=== PATIENT | female | born 1955 | race Caucasian/White ===

== ENCOUNTER 2017-08-04 09:43 | Inpatient (IN) ==
[2017-08-04 12:17] LABS: Activated Partial Thrombo Time 147.3 Seconds (26.0-36.0)
[2017-08-04 12:24] LABS: Heparin anti-factor XA UFH 0.99 IU/mL (0.30-0.70)
[2017-08-04] MEDS ORDERED: *HR* Heparin 5,000 UNIT/ML VIAL IVP PRN ×2 (13:22)
[2017-08-04] MEDS ORDERED: Ondansetron 4 MG/2 ML VIAL IVP PRN (13:25)
[2017-08-04] MEDS ORDERED: Acetaminophen 325 MG TABLET PO PRN (13:25)
[2017-08-04] MEDS ORDERED: Naloxone 0.4 MG/ML INJ IVP PRN (13:25)
[2017-08-04] MEDS ORDERED: *HR* Morphine 2 MG/ML SYRINGE IVP PRN (13:25)
[2017-08-04] MEDS ORDERED: *HR* HYDROcodone/Acet 5/325 mg TABLET PO PRN (13:25)
[2017-08-04] MEDS ORDERED: Heparin 25,000 UNIT/500 ML D5W 25,000 UNIT/500 ML BAG IVC SCH (13:30)
[2017-08-04] MEDS ORDERED: Nitroglycerin 0.4 MG TAB.SUBL SL PRN (13:30)
[2017-08-04 14:18] LABS: Hematocrit 42.8 % (35.3-44.9); Hemoglobin 13.7 g/dL (11.5-15.4); Mean Corpuscular Hemoglobin 27.6 pg (28.0-33.3); Mean Corpuscular Volume 86.1 fL (83.0-100.0); Mean Platelet Volume 10.8 fL (9.4-12.4); Platelet Count 190 K/mcL (140-400); Red Blood Count 4.97 M/mcL (3.82-4.97); Red Cell Distribution Width 14.2 % (11.5-14.5)
[2017-08-04 14:25] LABS: INR 1.1
[2017-08-04 14:38] LABS: Activated Partial Thrombo Time 30.2 Seconds (26.0-36.0)
--- NOTE | 2017-08-04 14:58 | Cardiology Consult Note ---
Date of Encounter: 08/04/17 Time of Encounter: 14:56 Assessment and Plan (1) CAD (coronary artery disease) Current Visit: No Status: Acute Qualifiers: Coronary Disease-Associated Artery/Lesion type: robinson artery [place] vs. transplanted heart: robinson heart Associated angina: without angina Qualified Code(s): I25.10 - Atherosclerotic heart disease of robinson coronary artery without angina pectoris (2) Non-ST elevation myocardial infarction (NSTEMI) Current Visit: No Status: Acute CAD, prior PCI to the LAD. Symptoms concerning for angina, mild troponin elevation, abnormal ECG. Findings consistent with a NSTEMI. Recommend serial troponin. Continue dual antiplatelet therapy, heparin drip, metoprolol, atorvastatin, and lisinopril therapy. Check limited TTE. The risks, benefits, and alternatives to cardiac catheterization were discussed. Patient and family voiced understanding, wish to proceed. Further recommendations to follow. Discussion w patient/family: The assessment and plan as outlined above was discussed with the patient and/or family members who expressed understanding and agreement. All questions were answered. Thank you for involving us in the care of your patient. Please call with any questions. History of Present Illness Consult date: 08/04/17 Requesting physician: Galina Thomson Consult reason: Chest discomfort Chief complaint: Chest discomfort History of present illness: Ms. Ying is a 61 year old female with a history of CAD, prior PCI to the proximal LAD 12/2016. Until recently, she has done well since PCI. She has been compliant with medical therapy. Over the last week, she has noticed intermittent chest discomfort. Initially, she noticed an upper left-sided chest discomfort with walking in the cold. This was associated with radiation down her left arm. This morning, she was walking to the bathroom to brush her hair, when the symptoms returned. She decided to seek medical attention. At an outside ER, testing obtained which demonstrated a mildly elevated troponin and anteroseptal ST and T-wave changes. Upon my evaluation in her room, she is currently chest pain-free. Recent CV testing: Stress echocardiogram 12/18/16: The exercise capacity was good, stress ECG is positive for ischemia with [address] depressions in the inferolateral leads, normal baseline LV systolic function, LVEF 55-60%, there is stress-induced hypokinesis of the mid anteroseptum, mid-apical anterior wall , apical inferior wall, and apex. [facility] [place] 12/24/16: Severe 1v CAD s/p successful PTCA/CARMENCITA to pLAD; otherwise non- obstructive CAD (15% pLCx, 15% pRCA). Past Med Surg Social Fam HX - Past Medical History Medical history: non-contributory, coronary artery disease, hypertension Psychiatric history: no psych history - Past Surgical History Surgical History: cholecystectomy - Social History Smoking Status: Never smoker Smokeless Tobacco Status: No Alcohol use: none Drug use: none Medications and Allergies Metoprolol Succinate 25 mg PO DAILY 12/24/16 [History] Nitroglycerin 0.4 mg SL Q5MIN 12/24/16 [History] Aspirin [Lo-Dose Aspirin EC] 81 mg PO DAILY #30 tablet. 12/25/16 [Rx] Atorvastatin [Lipitor] 80 mg PO HS #30 tablet 12/25/16 [Rx] Clopidogrel [Plavix] 75 mg PO DAILY #30 tablet 12/25/16 [Rx] Lisinopril [Zestril] 5 mg PO DAILY #30 tablet 12/25/16 [Rx] Ranitidine HCl 150 mg PO DAILY 08/04/17 [History] 3 Allergy/AdvReac Type Severity Reaction Status Date / Time clavulanic acid Allergy Nausea Verified 06/22/17 10:08 [From Augmentin] prochlorperazine Allergy Hallucinati Verified 06/22/17 10:08 [From Compazine] ng All Systems Review: A 10-system review of systems was performed and is negative for pertinent findings except as documented above in the HPI. - Cardiovascular Cardiovascular: as per HPI Physical Examination General: Conversant, No Apparent Distress HEENT: Atraumatic, Normocephaly, Mucus Membranes Moist Neck: No JVD, Normal carotid pulses Cardiac: Reg Rate and Rhythm, Normal S1 and S2, No Murmur Lungs: Normal Breath Sounds, No Wheeze, Rales, Rhonchi Neuro: Alert and responsive, No focal deficits noted Abdomen: Soft, Non-Tender Skin: No rashes noted on visualized skin Musculoskeletal: No Chest Wall Tenderness Extremities: No Clubbing, No Cyanosis, No Edema Results 08/04/17 14:00 Lab Results 08/04/17 08/04/17 08/04/17 11:28 14:00 14:00 WBC 5.2 Hgb 13.7 Hct 42.8 Plt Count 190 INR 1.1 APTT 147.3 H* D 30.2 D Troponin I 08/04/17 14:00 WBC Hgb Hct Plt Count INR APTT Troponin I 0.40 H* - Imaging and Cardiology Echo: report reviewed Cardiac cath: report reviewed - EKG Interpretation EKG results cardiology: personally reviewed Consult Discharge Plan - Plan Referrals: Lorenzo Hill MD [Primary Care Provider] -
--- NOTE | 2017-08-04 15:31 | Internal Med History&Physical ---
<Frank Dunbar - Last Filed: 08/04/17 15:53> Date of Encounter: 08/04/17 Time of Encounter: 12:30 Assessment and Plan (1) Non-ST elevation myocardial infarction (NSTEMI) Current visit: Yes Status: Acute Acute NSTEMI. Pt. reports left-sided chest pain this morning, 15 minutes in duration as sharp/stabbing pain w/radiation to left arm and accompanied by SOB and diaphoresis. Pt. which she took one nitroglycerin which resolved symptoms. Patient also reports history of previous heart catheterization in December 2016 with placement of stent 1. Initial troponin 0.32. Will trend x2. Cardiology consult ordered in ED w/Dr. Fernandez w/recommendation to continue heparin drip and limited EV echocardiogram. Pt. to be NPO for possible heart catheterization in a.m. continue aspirin therapy, metoprolol, atorvastatin, lisinopril. Hold patient's Plavix. Continuous cardiac telemetry. Supplemental O2 and SPO2 monitoring when necessary. Patient discussed with Dr. Mo who agrees w/plan of care. Patient is at high risk for cardiac event and further morbidity based on current symptoms, history of previous heart catheterization and stent placement, and risk factors. Inpatient. (2) HTN (hypertension) Current visit: Yes Status: Chronic Hx of chronic HTN. Monitor pt. and VS. Continue patient's lisinopril and metoprolol. Qualifiers: Hypertension type: essential hypertension Qualified Code(s): I10 - Essential (primary) hypertension (3) HLD (hyperlipidemia) Current visit: Yes Status: Chronic Hx of chronic HLD. Lipid panel in a.m. labs. Lipitor 80 mg now and continue HS tomorrow. Qualifiers: Hyperlipidemia type: pure hypercholesterolemia Qualified Code(s): E78.00 - Pure hypercholesterolemia, unspecified; E78.0 - Pure hypercholesterolemia (4) CAD (coronary artery disease) Current visit: Yes Status: Chronic Hx of CAD. Pt. reports she had previous heart cath in December 2016 w/stent placement x1. Continuous cardiac telemetry. Initial troponin today 0.32. Will trend x2. Cardiology consult ordered w/recommendation for EV limited echocardiogram. Continue patient's metoprolol, atorvastatin, lisinopril, and aspirin therapy. Qualifiers: Coronary Disease-Associated Artery/Lesion type: [place] artery [place] vs. transplanted heart: [place] heart Associated angina: without angina Qualified Code(s): I25.10 - Atherosclerotic heart disease of [place] coronary artery without angina pectoris (5) DVT prophylaxis Current visit: Yes Status: Acute Pt. placed in heparin drip for current elevated troponin and findings for NSTEMI. Monitor pt. for signs of bleeding. Internal Medicine - H&P: HPI Chief complaint: Chest pain Admitted From: Intrahospital Transfer Plans for Post Hospital Care: Home History of present illness: Ms. Ying is a 61 year old female with medical hx of coronary artery disease, hyperlipidemia, and hypertension presents from [facility] today are with chief complaint of chest pain that she states began this morning when she was getting ready for mosque and is located in her left breast that lasted approximately 15 minutes accompanied with diaphoresis and SOB. Patient describes the pain as sharp and stabbing with radiation to her left arm. Patient also reports previous heart catheter in December 2016 with placement of one stent. She reports she took one nitroglycerin at home which resolved symptoms. Patient denies recent illness, fever, chills, nausea, vomiting, changes in vision, headache, abdominal pain, diarrhea, constipation, dizziness, lightheadedness, pre-syncope , or syncope. Past Med Surg Social Fam HX - Past Medical History Source: patient, old records reviewed, obtained from family Medical history: coronary artery disease, hyperlipidemia, hypertension Psychiatric history: no psych history - Past Surgical History Surgical History: cholecystectomy - Social History Smoking Status: Never smoker Smokeless Tobacco Status: No Alcohol use: none Drug use: none Current living situation: Home, With Family Activity Level: Independent ambulation Recent Out of Country Travel Within the Last 8 Weeks: No Exposure or Possible Exposure to Illness During Travel: No - Family History Father Race: Family Member Ethnicity: Non- Living Status: Age at : 85 Cause of : CHF Hx Family Cardiac Disorders: Yes (DE, CHF) Hx Family Endocrine Disorder: Yes (DM) Mother Race: Family Member Ethnicity: Non- Living Status: Still Living Hx Family Respiratory Disorders: Yes (Pulmonary fibrosis) Sister Race: Family Member Ethnicity: Non- Living Status: Still Living Hx Family Respiratory Disorders: Yes (Pulmonary fibrosis) Internal Medicine - H&P: Meds Metoprolol Succinate 25 mg PO DAILY 12/24/16 [History] Nitroglycerin 0.4 mg SL Q5MIN 12/24/16 [History] Aspirin [Lo-Dose Aspirin EC] 81 mg PO DAILY #30 tablet. 12/25/16 [Rx] Atorvastatin [Lipitor] 80 mg PO HS #30 tablet 12/25/16 [Rx] Clopidogrel [Plavix] 75 mg PO DAILY #30 tablet 12/25/16 [Rx] Lisinopril [Zestril] 5 mg PO DAILY #30 tablet 12/25/16 [Rx] Ranitidine HCl 150 mg PO DAILY 08/04/17 [History] 3 Allergy/AdvReac Type Severity Reaction Status Date / Time clavulanic acid Allergy Nausea Verified 06/22/17 10:08 [From Augmentin] prochlorperazine Allergy Hallucinati Verified 06/22/17 10:08 [From Compazine] ng All Systems PM: A 10-system review of systems was performed and is negative for pertinent findings except as documented above in the HPI. - Constitutional Constitutional: no chills, no fever(s), no night sweats - EENT Eyes: no change in vision, no discharge, no pain, no photophobia Ears: no ear discharge, no ear pain, no tinnitus Nose, mouth and throat: no dysphagia, no nasal discharge, no neck pain, no sore throat - Breasts Breasts: as per HPI - Cardiovascular Cardiovascular ROS IM: as per HPI, chest pain, diaphoresis, dyspnea, dyspnea on exertion, no lightheadedness, no palpitations, no syncope - Respiratory Respiratory: as per HPI, dyspnea, dyspnea on exertion - Gastrointestinal Gastrointestinal: no abdominal pain, no diarrhea, no hematemesis, no hematochezia, no melena, no nausea, no vomiting - Genitourinary Genitourinary: no change in urinary stream, no dysuria, no flank pain, no hematuria Menstruation: as per HPI - Musculoskeletal Musculoskeletal ROS IM: no numbness, no tingling - Integumentary Integumentary IM: no rash, no unusual bruising - Neurological Neurological ROS: no confusion, no convulsions, no focal weakness, no numbness, no tingling, no tremor(s) - Psychiatric Psychiatric: as per HPI - Endocrine Endocrine IM: as per HPI - Hematologic/Lymphatic Hematologic/Lymphatic: no easy bruising - Allergic/Immunologic Allergic/Immunologic: as per HPI - Constitutional Vitals: Temp Pulse Resp BP Pulse Ox 97.4 F L 65 17 158/82 96 08/04/17 10:49 08/04/17 10:49 08/04/17 10:49 08/04/17 10:49 08/04/17 10:49 General appearance: Present: cooperative, A&O X 3, pleasant, no acute distress, answers questions appropriately - Head Head exam: Present: atraumatic, normal inspection, normocephalic - Eye Eye exam: Present: PERRL, conjuntiva pink, sclera anicteric Pupils: Present: PERRL - ENT ENT exam: Present: normal exam, normal external ear exam - Neck Neck exam general surgery: Present: normal inspection, supple, trachea midline. Absent: lymphadenopathy - Respiratory Respiratory exam: Present: CTAB. Absent: accessory muscle use, rales, rhonchi, wheezes - Cardiovascular Cardiovascular exam: Present: RRR, +S1, +S2. Absent: diastolic murmur, gallop, rubs, systolic murmur - GI/Abdominal GI/Abdominal exam: Present: normal bowel sounds, soft, no peritoneal signs. Absent: distended, tenderness - Rectal Rectal exam: Present: deferred - Additional comments: exam deferred. - Extremities Exam Extremities exam: Present: warm, radial pulses palpable and symmetrical. Absent : calf tenderness, cyanotic, pedal edema - Back Exam Back exam: Present: normal inspection - Neurological Exam Neurological exam: Present: CN II-XII intact, oriented X3, no focal deficits. Absent: pronater drift, facial droop, speech deficit - Psychiatric Psychiatric exam: Present: normal affect, normal mood - Skin Skin exam: Present: dry, intact Internal Med - H&P Results - Labs CBC & Chem 7: 08/04/17 14:00 Labs: Short CBC 08/04/17 Range/Units 14:00 WBC 5.2 (4.3-11.1) K/mcL Hgb 13.7 (11.5-15.4) g/dL Hct 42.8 (35.3-44.9) % Plt Count 190 (140-400) K/mcL Cardiac Enzymes 08/04/17 Range/Units 14:00 Troponin I 0.40 H* (0-0.03) ng/mL - EKG Data EKG shows normal: sinus rhythm - EKG Data Prior EKG available for review: no EKG comments: 08/04/17 15:36 EKG dated 08/04/17 shows sinus rhythm with moderate voltage criteria for LVH, consider normal variant. Nonspecific ST and T-wave abnormality. Borderline ECG. - Diagnostic Studies Chest x-ray Additional comments: EXAMINATION: SINGLE VIEW OF THE CHEST 08/04/2017 8:41 am COMPARISON: 10/27/2012. HISTORY: ORDERING SYSTEM PROVIDED HISTORY: chest pain Acute symptoms for 1 week. History of CAD and hypertension. FINDINGS: Heart size is normal. Lungs appear clear. No adenopathy or pleural effusion. XR/XR chest 1V portable IMPRESSION: Normal chest. No change from the prior study. D/ / Sonu Wilson MD / Sonu Wilson MD Interpreting Provider: Sonu Wilson MD <Jaja Mo - Last Filed: 08/05/17 07:23> Date of Encounter: 08/04/17 Time of Encounter: 15:42 Internal Medicine - H&P: HPI History of present illness: Ms. Ying is a 61 year old female All Systems PM: A 10-system review of systems was performed and is negative for pertinent findings except as documented above in the HPI. - Constitutional Vitals: Temp Pulse Resp BP Pulse Ox 97.2 F L 87 16 144/91 97 08/05/17 07:00 08/05/17 07:00 08/05/17 07:00 08/05/17 07:00 08/05/17 07:00 Internal Med - H&P Results - Labs CBC & Chem 7: 08/05/17 04:49 08/05/17 04:49 Labs: Short CBC 08/04/17 08/05/17 Range/Units 14:00 04:49 WBC 5.2 6.0 (4.3-11.1) K/mcL Hgb 13.7 13.4 (11.5-15.4) g/dL Hct 42.8 41.9 (35.3-44.9) % Plt Count 190 180 (140-400) K/mcL Neutrophils # 3.3 (1.6-8.9) K/mcL BMP 08/05/17 04:49 Sodium 141 Potassium 3.9 Chloride 108 Carbon Dioxide 25 BUN 17 Creatinine 0.71 Glucose 104 H Calcium 8.9 Cardiac Enzymes 08/04/17 08/04/17 Range/Units 14:00 21:13 Troponin I 0.40 H* 0.34 H* (0-0.03) ng/mL Liver Function 08/05/17 Range/Units 04:49 Total Bilirubin 0.4 (0.2-1.2) mg/dL AST 24 (5-34) Units/L ALT 24 (0-55) Units/L Alkaline Phosphatase 62 (38-126) Units/L Albumin 3.3 L (3.5-5.0) g/dL - Attending Attestation Patient independently seen and examined with family present at bedside. case discussed with JOSEPH Dunbar, I agree with his documented findings , disposition, and plan except as listed in the event note
--- NOTE | 2017-08-04 15:46 | Event Note ---
Date of Encounter: 08/04/17 Time of Encounter: 15:42 Patient is a 61y/o female with PMH Of CAD (s/p LHC with successful PTCA/CARMENCITA to proximal LAD in December 2016), hypertension who was transferred from [facility] for evaluation of chest pain. Patient independently seen and examined with family present at bedside. Will admit patient for NSTEMI -continue aspirin, lipitor, nitro SL Prn chest pain (resolved at this time) -heparin gtt -cardiology on board and consultation appreciated -NPO after midnight for possible LHC in am -resumed all other home medications -f/u 2D echo Case discussed with JOSEPH Dunbar, I agree with his documented findings , disposition, and plan except as listed above.
[2017-08-05 05:48] LABS: Basophils % 0.3 %; Eosinophils # 0.3 K/mcL (0.0-0.6); Eosinophils % 5.2 %; Hematocrit 41.9 % (35.3-44.9); Hemoglobin 13.4 g/dL (11.5-15.4); Immature Granulocytes % 0.2 % (0-4); Lymphocytes # 1.8 K/mcL (0.6-4.6); Lymphocytes % 29.8 %; Mean Corpuscular Hemoglobin 27.3 pg (28.0-33.3); Mean Corpuscular Volume 85.5 fL (83.0-100.0); Mean Platelet Volume 11.1 fL (9.4-12.4); Monocytes # 0.6 K/mcL (0.0-1.3); Monocytes % 9.5 %; Neutrophils # 3.3 K/mcL (1.6-8.9); Platelet Count 180 K/mcL (140-400); Red Cell Distribution Width 14.3 % (11.5-14.5)
[2017-08-05 05:52] LABS: Hemoglobin A1C 5.6 %
[2017-08-05 05:58] LABS: Alanine Aminotransferase 24 Units/L (0-55); Albumin 3.3 g/dL (3.5-5.0); Albumin/Globulin Ratio 0.9 (1.1-2.2); Alkaline Phosphatase 62 Units/L (38-126); Aspartate Amino Transferase 24 Units/L (5-34); BUN/Creatinine Ratio 24 (6-26); Bilirubin,Total 0.4 mg/dL (0.2-1.2); Blood Urea Nitrogen 17 mg/dL (7-20); Calcium 8.9 mg/dL (8.6-10.8); Carbon Dioxide 25 mEq/L (19-29); Chloride 108 mEq/L (98-109); Chol/HDL Ratio 3.1 (0-4.9); Cholesterol 149 mg/dL (< 200); Globulin 3.5 g/dL (2.4-3.5); Glucose 104 mg/dL (70-99); HDL Cholesterol 48 mg/dL (40-59); LDL Cholesterol,Calculated 84 mg/dL (0-99); Osmolality,Calculated 294 (280-300); Potassium 3.9 mEq/L (3.5-4.5); Sodium 141 mEq/L (136-145); Total Protein 6.8 g/dL (6.0-8.3); Triglycerides 87 mg/dL (< 150); eGFR For African Americans > 60 (> 60); eGFR For Non-African Americans > 60 (> 60)
[2017-08-05] MEDS: Famotidine 20 MG TABLET PO SCH (06:04)
[2017-08-05] MEDS ORDERED: Heparin 1,000 UNIT, 0.9 % Sodium Chloride 500 ML INARTERIAL ONE (08:15)
[2017-08-05] MEDS: Aspirin Enteric Coated 81 MG Tablet PO SCH (08:28)
[2017-08-05] MEDS: Metoprolol XL (24 HR) Succ 25 MG TAB.ER.24H PO SCH (08:28)
--- NOTE | 2017-08-05 09:33 | Event Note ---
Date of Encounter: 08/05/17 Time of Encounter: 09:00 - Cardiology Event Note Seen and examined earlier this morning. Denies recurrent chest pain since admission. Plan for C later this afternoon; alternatives, risks, and benefits discussed she is agreeable to proceed. Okay for light breakfast this AM then NPO. Further recommendations to follow. Patient was discussed and reviewed with Dr. Fernandez who agrees with plan as stated above.
[2017-08-05] MEDS: Loratadine 10 MG TABLET PO SCH (11:09)
--- NOTE | 2017-08-05 14:07 | Internal Med Progress Note ---
Date of Encounter: 08/05/17 Time of Encounter: 14:05 - Assessment and plan (1) NSTEMI (non-ST elevated myocardial infarction) Current Visit: Yes Status: Acute Assessment and plan: heparin dirp plavix, asa, BB, statin LHC later today per cardio ECHO 55 5EF , no wall motion abnormalities (2) Psoriasis Current Visit: Yes Status: Acute (3) CAD (coronary artery disease) Current Visit: Yes Status: Chronic Assessment and plan: prior CARMENCITA in LAD in December Qualifiers: Coronary Disease-Associated Artery/Lesion type: [place] artery [place] vs. transplanted heart: [place] heart Associated angina: without angina Qualified Code(s): I25.10 - Atherosclerotic heart disease of [place] coronary artery without angina pectoris (4) HTN (hypertension) Current Visit: Yes Status: Chronic Assessment and plan: lisinopril Qualifiers: Hypertension type: essential hypertension Qualified Code(s): I10 - Essential (primary) hypertension (5) HLD (hyperlipidemia) Current Visit: Yes Status: Chronic Qualifiers: Hyperlipidemia type: pure hypercholesterolemia Qualified Code(s): E78.00 - Pure hypercholesterolemia, unspecified; E78.0 - Pure hypercholesterolemia - Subjective Interval history: denies CP , no SOB, no abdominal pain , no dysuria, no diarrhea, no fever - Constitutional Vitals: Temp Pulse Resp BP Pulse Ox 97.4 F L 74 16 118/72 97 08/05/17 11:00 08/05/17 11:00 08/05/17 11:00 08/05/17 11:00 08/05/17 11:00 General appearance: Present: cooperative, A&O X 3, pleasant, no acute distress, answers questions appropriately Exam: psoriasis lesions in elbowd ans knees - Head Head exam: Present: atraumatic, normocephalic - Eye Eye exam: Present: PERRL, conjuntiva pink, sclera anicteric Pupils: Present: PERRL - Neck Neck exam general surgery: Present: supple, trachea midline. Absent: lymphadenopathy - Respiratory Respiratory exam: Present: CTAB. Absent: accessory muscle use, rales, rhonchi, wheezes - Cardiovascular Cardiovascular exam: Present: RRR, +S1, +S2. Absent: diastolic murmur, gallop, rubs, systolic murmur - GI/Abdominal GI/Abdominal exam: Present: normal bowel sounds, soft, no peritoneal signs. Absent: distended, tenderness - Extremities Exam Extremities exam: Present: warm, radial pulses palpable and symmetrical. Absent : calf tenderness, cyanotic, pedal edema - Neurological Exam Neurological exam: Present: CN II-XII intact, oriented X3, no focal deficits. Absent: pronater drift, facial droop, speech deficit - Skin Skin exam: Present: dry, intact Internal Medicine: Result - Labs CBC & Chem 7: 08/05/17 04:49 08/05/17 04:49 Labs: Short CBC 08/04/17 08/05/17 Range/Units 14:00 04:49 WBC 5.2 6.0 (4.3-11.1) K/mcL Hgb 13.7 13.4 (11.5-15.4) g/dL Hct 42.8 41.9 (35.3-44.9) % Plt Count 190 180 (140-400) K/mcL Neutrophils # 3.3 (1.6-8.9) K/mcL BMP 08/05/17 04:49 Sodium 141 Potassium 3.9 Chloride 108 Carbon Dioxide 25 BUN 17 Creatinine 0.71 Glucose 104 H Calcium 8.9 Cardiac Enzymes 08/04/17 08/04/17 Range/Units 14:00 21:13 Troponin I 0.40 H* 0.34 H* (0-0.03) ng/mL Liver Function 08/05/17 Range/Units 04:49 Total Bilirubin 0.4 (0.2-1.2) mg/dL AST 24 (5-34) Units/L ALT 24 (0-55) Units/L Alkaline Phosphatase 62 (38-126) Units/L Albumin 3.3 L (3.5-5.0) g/dL - ABG Interpretation ABG results: PT/INR, D-dimer PT 12.0 Seconds (9.4-12.1) 08/04/17 14:00 - Impressions Impressions Echocardiogram Limited Views 08/05/17 15:02 Impressions: LVEF 55%. Normal LV chamber size and function. Mild concentric left ventricular hypertrophy. Left Ventricular Wall Motion: Rest Echo Findings All wall segments showed normal motion. Findings: Study Quality * Technically adequate exam. ECG Findings * Normal sinus rhythm. Left Ventricle * LVEF 55%. * Normal LV chamber size and function. * Mild concentric left ventricular hypertrophy. Right Ventricle * Normal right ventricular structure and function. Aorta * Normally sized aortic root. Pericardium * The pericardium appears normal. IVC * Normal IVC dimensions and inspiratory collapse. Consult Discharge Plan - Plan Referrals: Lorenzo Hill MD [Primary Care Provider] - (web request sent on 08/05/2017)
[2017-08-05] MEDS ORDERED: *HR* Heparin 10,000 UNIT/10 ML VIAL ONE (16:55)
[2017-08-05] MEDS ORDERED: Nitroglycerin 1,000 MCG/10 ML VIAL IV ONE (16:55)
[2017-08-05] MEDS ORDERED: 0.9 % Sodium Chloride 1,000 ML ONE ×2 (16:55→17:19)
[2017-08-05] MEDS ORDERED: *HR* Midazolam HCl 2 MG/2 ML VIAL ONE (17:19)
[2017-08-05] MEDS ORDERED: *HR* FentaNYL (PF) 100 MCG/2 ML VIAL ONE (17:19)
--- NOTE | 2017-08-05 17:19 | Pre-Sedation Evaluation ---
Pre-sedation evaluation - Pre-sedation checklist Date of procedure: 08/05/17 Procedure: [facility] Recent Vitals: Last Vital Signs Temp 98.3 F 08/05/17 15:32 Pulse 67 08/05/17 15:32 Resp 18 08/05/17 15:32 BP 163/94 08/05/17 15:32 Pulse Ox 97 08/05/17 15:32 H&P (including ROS) documented in medical record: Yes Previous reaction to sedatives/anesthetics: Yes; explain in comment Dietary Status: NPO 6 hours prior to procedure Dentition: dentures removed ASA Classification *see protocol: CLASS II-Mild systemic disease Plan of Care: Pt appropriate candidate for procedure/moderate/conscious sedation
[2017-08-05] MEDS ORDERED: Tirofiban 12.5 MG/250ML 12.5 MG/250 ML BAG ONE (17:41)
--- NOTE | 2017-08-05 18:31 | Invasive Diagnostic Lab Proc ---
Name: Michelle Ying Date of Study: 08/05/2017 Date: 1955 Ht: 63.0in Medical Record#: [id number] Age: 61 Wt: 92.37lb Gender: Female BSA: 1.39 Order #: [id number] BMI: 16.37 Physicians Procedure Physician: Heaven Mo MD Referring MD: Referring MD: Staff Name Position Time In Sites, Sravanthi RT (R) Monitor 05:24 PM Demi Cruz RT (R) Scrub 05:27 PM Nellie Shelton RN Rubber Down 05:27 PM Indications Indication Unstable Angina Procedures Performed Procedure L HRT ARTERY/VENTRICLE ANGIO PRQ CARD CARMENCITA STENT W/ANGIO 1 VSL Pre-Procedure Checklist Informed consent is complete signed and on chart. H&P is on chart. ID band is on and ID verified with patient. Patient NPO for procedure The procedure was described for the patient and questions were answered. Blood Pressure: 188/97 ECG is on chart. Rhythm: NSR Plan of Care Patient will tolerate the procedure without complications. Adequate level of comfort will be maintained. Hemodynamics will remain stable Patient will recover from procedure without complications. Respiratory function will be maintained. Cardiac rhythm will remain stable. Patient temperature will be maintained. Patient and/or family have verbalized understanding of the procedure. Patient Education Chief Complaint/Reason for Test: Cardiac Cath Developmental Category: Adult (18-64 years) Developmentally Appropriate for Age: Yes Learning Barriers: None Education Needs: Procedure Education Method: Verbal Information Taught: Cardiac Cath Educational Evaluation: Able to repeat information Intravenous Access Time IV Size Location DC'd Fluid/Drip Rate Units RN 22g 1" Patent On Arrival Lt Arm 0.9NaCl 25 ml/hr Nellie Shelton RN Allergies clavulanic acid Amoxicillin COMPAZINE prochlorperazine Vital Signs Time BP (mmHg) HR (bpm) O2 Sat. RR (bpm) LOC 05:24 PM 188 / 97 69 100 % 10 05:28 PM 183 / 102 74 100 % 13 05:33 PM 145 / 84 70 100 % 13 05:38 PM 143 / 85 79 100 % 18 05:43 PM 155 / 89 75 100 % 7 05:48 PM 154 / 85 76 100 % 13 05:53 PM 156 / 107 94 93 % 20 05:58 PM 158 / 86 71 97 % 18 06:03 PM 152 / 96 73 100 % 16 06:08 PM 143 / 91 80 95 % 10 Procedural Medications Time Medication Dose Units Method Given By 05:29 PM Oxygen 2 L/min nasal cannula Nellie Shelton RN 05:29 PM Versed 1 mg Intravenous Nellie Shelton RN 05:29 PM Fentanyl 50 mcg Intravenous Nellie Shelton RN 05:35 PM Lidocaine 2% 10 ml Subcutaneous Heaven Mo MD 05:44 PM Heparin 3500 units Intravenous Nellie Shelton RN 05:44 PM Aggrastat Bolus: 33 ml Intravenous Nellie Shelton RN 05:44 PM Aggrastat 12.5mg/250ml 12 ml Intravenous Nellie Shelton RN 05:54 PM Nitroglycerin 100 mcg Intracoronary Kiara Mo MD 06:10 PM Plavix 75 mg Orally Nellie Shelton RN ASA Classification: CLASS II- Mild systemic disease (i.e. well-controlled diabetes, hypertension, asthma, cigarette smoking) Maria Alejandra Score Preprocedure Postprocedure Activity 2- Moves 4 extremities sustained head lift Activity 2- Moves 4 extremities sustained head lift Circulation 2- SBP +/= 20 points of pre-anesthetic level Circulation 2- SBP +/= 20 points of pre-anesthetic level Consciousness 2- Awake and alert oriented x 3 Consciousness 2- Awake and alert oriented x 3 O2 Saturation 2- Able to maintain O2 satruation of 92% on room air O2 Saturation 2- Able to maintain O2 satruation of 92% on room air Respiratory 2- Able to deep breathe and cough well Respiratory 2- Able to deep breathe and cough well Total Score 10 Total Score 10 Contrast Agent: Isovue Diagnostic Contrast: 146 ml Total Contrast: 146 ml Fluoro Dose: 629 mGy Procedure Log Time Note Enter By 05:22 PM CathStat 05:22 PM Vitals capture started with the following parameters, Patient=Adult, Interval=5 min, Initial Dcxdxdvj=720 mmHg, Deflation Rate=5 mmHg, Cuff placed on Right Arm 05:24 PM HR=69 bpm, TLFW=553/97 mmhg, AzF4=435.0 %, Resp=10 B/min 05:24 PM Pt arrived to corn lab technician 2 at 17:24 [email or web address] 05:27 PM Recorded ECG: HR=84 Condition=Condition 1 05:27 PM Sravanthi David RT (R) Position: Monitor Time in: 17:24 05:27 PM Demi Cruz RT (R) Position: Scrub Time in: 17: 05:27 PM Nellie Shelton RN Position: Rubber Down Time in: 17: 05:27 PM Patient charges- Angio tray pack, Navilyst 3mm J, Pulse Oximetry and ACIST tubing and transducer 05: PM Physician arrived 17: 05: PM Meet and lamar completed 05:27 PM Sign in performed according to hospital policy. 05:27 PM Procedure start 17: 05:28 PM HR=74 bpm, ZOXJ=410/102 mmhg, NtS4=957.0 %, Resp=13 B/min 05:29 PM Time: 17:29 Oxygen on at 2 L/min per nasal cannula by Nellie Shelton RN [email or web address] 05:29 PM Time: 17:29 Versed 1 mg Intravenous Given by Nellie Shelton RN [email or web address] 05:29 PM Time: 17:29 Fentanyl 50 mcg Intravenous Given by Nellie Shelton RN [email or web address] 05:33 PM HR=70 bpm, SGYX=043/84 mmhg, NjS7=086 %, Resp=13 B/min 05:34 PM Hair removed from procedure site in holding area using clippers. Bilateral groin prepped with Chloraprep by Nellie Shelton RN, safety strap applied then patient was draped. Skin intact. 05:35 PM Clinical Presentation: Non-STEMI 05:35 PM Time out performed according to hospital policy 05:35 PM Time: 17:35 10 ml Lidocaine 2% to right groin Subcutaneous Given by Heaven Mo MD elle 05:35 PM Access obtained by percutaneous puncture. 6Fr 10cm Terumo Julian sheath placed in right Femoral artery. [id number] 05:35 PM 5Fr FR 4 catheter inserted over the wire [facility] elle 05:36 PM 0.035 145cm Navilyst 3mmJ wire [id number] [place] 05:36 PM Recorded Pressure: Ao, HR=72, Condition=Condition 1 (Aorta) Ao 154/106/128 05:36 PM RCA angiography performed in multiple views. [email or web address] 05:36 PM wire [id number] catheter removed [email or web address] 05:37 PM 5Fr FL 4 catheter inserted over the wire DN [email or web address] 05:38 PM LCA angiography performed in multiple views. tsites 05:38 PM HR=79 bpm, MEYL=056/85 mmhg, JbR5=873.0 %, Resp=18 B/min 05:39 PM Recorded Pressure: LV, HR=88, Condition=Condition 1 (Left Ventricle) LV 180/37/45 05:40 PM Recorded Pressure: LV, Ao, HR=86, Condition=Condition 1 (Left Ventricle) LV 201/25/25, (Aorta) Ao 196/102/148 05:40 PM ACT drawn tsites 05:40 PM EDP measured tsites 05:40 PM wire reinserted catheter removed tsites 05:41 PM PCI Status Urgent tsites 05:41 PM PCI Indication: PCI for high risk Non-STEMI or unstable angina tsites 05:41 PM PCI lesion in Proximal LAD. tsites 05:41 PM 6Fr XB LAD 3.5 [place] Bright-Tip guide catheter was used to cannulate the PCI vessel successfully. reused? No tsites 05:41 PM .014 [place]ielder 182cm guide wire across target lesion- successful. reused? No tsites 05:41 PM Inflation device was opened. tsites 05:43 PM HR=75 bpm, LEZQ=677/89 mmhg, HdS6=347.0 %, Resp=7 B/min 05:44 PM Time: 17:44 Heparin 3500 units Intravenous Given by Nellie Shelton RN tsites 05:44 PM Time: 17:44 Aggrastat Bolus: 33 ml Intravenous Given by Nellie Shelton RN Moore pump tsites 05:45 PM Time: 17:44 Aggrastat 12.5mg/250ml 12 ml Intravenous Given by Nellie Shelton RN Moore pump tsites 05:46 PM Recorded Pressure: Ao, HR=75, Condition=Condition 1 (Aorta) Ao 169/99/129 05:48 PM HR=76 bpm, XBZO=737/85 mmhg, BrS1=567 %, Resp=13 B/min 05:51 PM 2.0 mm x 15 mm Emerge Monorail balloon across target lesion- successful. reused? No tsites 05:53 PM Balloon inflated @ 10 jong for 10 seconds tsites 05:53 PM HR=94 bpm, THEI=158/107 mmhg, SpO2=93 %, Resp=20 B/min 05:53 PM Recorded Pressure: Ao, OO=456, Condition=Condition 1 (Aorta) Ao 154/122/138 05:53 PM Balloon inflated @ 1010 jong for seconds tsites 05:53 PM Balloon inflated @ 10 jong for 4 seconds tsites 05:54 PM Balloon catheter removed intact. tsites 05:55 PM Time: 17:54 Nitroglycerin 100 mcg Intracoronary Given by Kiara Mo MD tsites 05:58 PM HR=71 bpm, EGKD=211/86 mmhg, SpO2=97 %, Resp=18 B/min 05:59 PM 2.5mm x 24mm Synergy drug-eluting stent across target lesion- successful Lot #[id number] tsites 05:59 PM Stent deployed @ 16 jong for 15 seconds tsites 05:59 PM Stent balloon reinflated @ 18 jong for 13 seconds tsites 06:01 PM 2.75 mm x 20mm NC Emerge balloon across target lesion- successful. reused? No tsites 06:02 PM Balloon inflated @ 20 jong for 12 seconds tsites 06:03 PM Balloon inflated @ 18 jong for 9 seconds tsites 06:03 PM HR=73 bpm, SMVU=031/96 mmhg, TmF4=896 %, Resp=16 B/min 06:03 PM Balloon catheter removed intact. tsites 06:03 PM Guide wire removed intact. tsites 06:06 PM Guide catheter removed intact. tsites 06:06 PM Procedure completed at 18:06 tsites 06:07 PM Sign out completed: Radiation Dose 629 mGy Fluoro Time: 12.3 Isovue 370 - 200ml contrast 146 ml given by Heaven Mo MD. Complications: NoneCardiac Rehab Consult needed: YesConfirmed administered medications: Yes tsites 06:07 PM Isovue 370 - 200ml,1 Bottle(s) used. tsites 06:08 PM Arterial sheath pulled, Mynx closure device used and was Successful S/N. tsites 06:08 PM Estimated Blood Loss: less than 20cc tsites 06:08 PM Post ECG NSR tsites 06:08 PM HR=80 bpm, DOVZ=905/91 mmhg, SpO2=95 %, Resp=10 B/min 06:08 PM Post Blood Pressure 143/91 tsites 06:08 PM 18:08 Post Pulses Bilateral DP & PT 1+ tsites 06:08 PM Information taught Cardiac Cath and PCI tsites 06:09 PM Education needs Procedure, Plan of Care, and Responsibilities of Patient in Care tsites 06:09 PM Learning barriers :None tsites 06:09 PM Education Methods Verbal tsites 06:09 PM Education evaluation Able to repeat information tsites 06:09 PM Site status No bleeding/hematoma - Rt Groin as reported by Demi Cruz RT (R) at 18:09 tsites 06:09 PM Opsite applied tsites 06:10 PM Time: 18:10 Plavix 75 mg Orally Given by Nellie Shelton RN tsites 06:13 PM Report given to reinaldo VALENZUELA Pt taken to 2A Room #34. 18:13 tsites 06:13 PM Plavix, Effient or Brilinta given Yes tsites 06:13 PM Delay to floor No tsites 06:13 PM Patient out of room: 18:13 tsites 06:13 PM Family placed in consult room. tsites 06:17 PM Lesion found in Proximal LAD. Pre Stenosis: 99 Pre SACHI Flow: 3: Complete and Brisk Flow/Perfusion tsites 06:17 PM Coronary Dominance: right tsites 06:17 PM Proximal Left Anterior Descending Coronary Artery with 99% stenosis. If graft is supplying this territory, 0 % stenosis. tsites 06:19 PM manual pressure applied to rt groin small hematoma noted tsites 06:24 PM Site status No bleeding/hematoma - Rt Groin as reported by Demi Cruz RT (R) at 18:24 tsites Complications Complication None Hemodynamics Pressures Site Systolic/A Wave Diastolic/V Wave Mean AO 154 106 128 LV 180 37 45 LV 201 25 25 AO 196 102 148 AO 169 99 129 AO 154 122 138 Post Procedure Information Blood Pressure: 143/91 mmHg Rhythm: NSR Post procedural instructions were given Closure Device Time Device Success/Fail 08/05/2017 6:13:00 PM MynxGrip Successful Site Checks Time Location Status Staff Sheath In? Note 06:09 PM Rt Groin No bleeding/hematoma Demi Cruz RT (R) 06:24 PM Rt Groin No bleeding/hematoma Demi Cruz RT (R) Pulses Time Site Pre-Procedure Post-Procedure Note Bilateral DP & PT 2+ 6:08:00 PM Bilateral DP & PT 1+ Updated by Sravanthi Sites, RT (R) on 08/05/2017 6:24:28 PM [facility], RT electronically signed on 08/05/2017 6:25:12 PM with status of Final
[2017-08-05 19:42] LABS: Activated Partial Thrombo Time 162.6 Seconds (26.0-36.0)
[2017-08-05 19:59] LABS: Heparin anti-factor XA UFH 1.14 IU/mL (0.30-0.70)
[2017-08-05] MEDS ORDERED: Tirofiban 12.5 MG/250ML 12.5 MG/250 ML BAG IVC SCH (20:30)
[2017-08-06 05:08] LABS: Basophils % 0.1 %; Eosinophils # 0.1 K/mcL (0.0-0.6); Eosinophils % 0.7 %; Hematocrit 38.4 % (35.3-44.9); Hemoglobin 12.2 g/dL (11.5-15.4); Immature Granulocytes % 0.4 % (0-4); Lymphocytes # 1.1 K/mcL (0.6-4.6); Lymphocytes % 14.5 %; Mean Corpuscular HGB Conc 31.8 g/dL (31.6-35.5); Mean Corpuscular Hemoglobin 27.3 pg (28.0-33.3); Mean Corpuscular Volume 85.9 fL (83.0-100.0); Mean Platelet Volume 10.9 fL (9.4-12.4); Monocytes # 0.8 K/mcL (0.0-1.3); Monocytes % 10.4 %; Neutrophils # 5.5 K/mcL (1.6-8.9); Platelet Count 209 K/mcL (140-400); Red Blood Count 4.47 M/mcL (3.82-4.97); Red Cell Distribution Width 14.5 % (11.5-14.5); Segmented Neutrophils % 73.9 %
[2017-08-06 05:11] LABS: Alanine Aminotransferase 24 Units/L (0-55); Albumin 3.1 g/dL (3.5-5.0); Alkaline Phosphatase 54 Units/L (38-126); Aspartate Amino Transferase 24 Units/L (5-34); BUN/Creatinine Ratio 21 (6-26); Bilirubin,Total 0.6 mg/dL (0.2-1.2); Blood Urea Nitrogen 13 mg/dL (7-20); Calcium 8.9 mg/dL (8.6-10.8); Carbon Dioxide 23 mEq/L (19-29); Chloride 107 mEq/L (98-109); Globulin 3.2 g/dL (2.4-3.5); Glucose 109 mg/dL (70-99); Osmolality,Calculated 287 (280-300); Potassium 4.2 mEq/L (3.5-4.5); Sodium 138 mEq/L (136-145); Total Protein 6.3 g/dL (6.0-8.3); eGFR For African Americans > 60 (> 60); eGFR For Non-African Americans > 60 (> 60)
[2017-08-06] MEDS: Famotidine 20 MG TABLET PO SCH (05:59)
--- NOTE | 2017-08-06 08:15 | Cardiology Progress Note ---
Date of Encounter: 08/06/17 Time of Encounter: 08:13 Assessment and Plan (1) NSTEMI (non-ST elevated myocardial infarction) Current Visit: Yes Status: Acute S/p PTCA and CARMENCITA to the 99% stenosed LAD. LMCA, LCX, and RCA angiographically free of disease. TTE shows EF 55%. Mild LVH. There was no complication from her procedure. I discussed POC with patient and . Possible plavix failure was discussed with family yesterday. I talked to Dr. Mo and he recommended that it was considered. I discussed with her journalism intern Dr. Fernandez who agrees. plavix discontinued and brilinta ordered to start 180 mg for her first dose and 90 mg BID thereafter. Patient and voice understanding. Importance of DAPT with asa and brilinta uninterrupted for minimum of one year reviewed with patient and he voiced understanding. Continue statin and bb. There was no complication with her right groin access site. Activity restrictions reviewed as stated above. Phase one cardiac rehab ordered. Out -patient f/u in one to two weeks will be scheduled. Cardiology will sign off. Call with questions. (2) CAD (coronary artery disease) Current Visit: Yes Status: Chronic S/p PCI to the LAD in December and yesterday. Continue asa, brilinta, statin, and bb. Qualifiers: Coronary Disease-Associated Artery/Lesion type: [place] artery [place] vs. transplanted heart: [place] heart Associated angina: without angina Qualified Code(s): I25.10 - Atherosclerotic heart disease of [place] coronary artery without angina pectoris Discussion w patient/family: The assessment and plan as outlined above was discussed with the patient and/or family members who expressed understanding and agreement. All questions were answered. Thank you for involving us in the care of your patient. Please call with any questions. Subjective Principal diagnosis: NSTEMI Interval history: S/p PCI to to the LAD severe ISR. Objective Vital Signs, Last 4 Hours Temp Pulse Resp BP Pulse Ox 08/06/17 07:43 98.1 F 79 18 119/73 95 08/06/17 04:19 97.4 F L 74 16 118/77 94 General: Conversant, No Apparent Distress HEENT: Atraumatic, Normocephaly, Mucus Membranes Moist Neck: No JVD, Normal carotid pulses Cardiac: Reg Rate and Rhythm, Normal S1 and S2, No Murmur Lungs: Normal Breath Sounds, No Wheeze, Rales, Rhonchi Neuro: Alert and responsive, No focal deficits noted Abdomen: Soft, Non-Tender Skin: No rashes noted on visualized skin Musculoskeletal: No Chest Wall Tenderness Extremities: No Clubbing, No Cyanosis, No Edema, Normal Pulses, Other (Right groin dressing removed. Noted to have saturation of dressing. No bleeding at femoral access site. Area is soft. No hematoma. ) Results 08/06/17 04:13 08/06/17 04:13 Lab Results 08/05/17 08/05/17 08/06/17 12:37 18:51 04:13 WBC 7.5 Hgb 12.2 Hct 38.4 Plt Count 209 APTT 68.2 H 162.6 H* D Sodium Potassium Chloride Carbon Dioxide BUN Creatinine Glucose Calcium Total Bilirubin AST ALT Alkaline Phosphatase 08/06/17 04:13 WBC Hgb Hct Plt Count APTT Sodium 138 Potassium 4.2 Chloride 107 Carbon Dioxide 23 BUN 13 Creatinine 0.62 Glucose 109 H Calcium 8.9 Total Bilirubin 0.6 AST 24 ALT 24 Alkaline Phosphatase 54 - Imaging and Cardiology Echo: report reviewed Cardiac cath: report reviewed Consult Discharge Plan - Plan Referrals: Lorenzo Hill MD [Primary Care Provider] - (web request sent on 08/05/2017)
[2017-08-06] MEDS: Loratadine 10 MG TABLET PO SCH (08:19)
[2017-08-06] MEDS: Aspirin Enteric Coated 81 MG Tablet PO SCH (08:19)
[2017-08-06] MEDS: Metoprolol XL (24 HR) Succ 25 MG TAB.ER.24H PO SCH (08:19)
--- NOTE | 2017-08-06 11:04 | Discharge Summary ---
<Luis Miguel Brooks - Last Filed: 08/06/17 12:46> Date of Encounter: 08/06/17 Time of Encounter: 07:30 - Discharge Diagnosis (1) NSTEMI (non-ST elevated myocardial infarction) Priority: Primary Status: Acute Comments: CARMENCITA placed in proximal LAD yesterday. No complications. Started on brilinta to replace plavix in dual anti platelet therapy, and therapy should continue for 1 year minimum. Continue statin and beta [place]. Cardiac rehab. Follow up with cardiology as outpatient in 1-2 weeks. (2) CAD (coronary artery disease) Priority: Primary Status: Chronic Comments: f/u with cardiology in 1-2 weeks Continue asa, brilinta, statin, and beta [place] Qualifiers: Coronary Disease-Associated Artery/Lesion type: [place] artery [place] vs. transplanted heart: [place] heart Associated angina: without angina Qualified Code(s): I25.10 - Atherosclerotic heart disease of [place] coronary artery without angina pectoris (3) HTN (hypertension) Priority: Primary Status: Chronic Comments: Controlled. Continue lisinopril and beta [place]. Qualifiers: Hypertension type: essential hypertension Qualified Code(s): I10 - Essential (primary) hypertension (4) HLD (hyperlipidemia) Priority: Primary Status: Chronic Comments: Continue statin therapy Qualifiers: Hyperlipidemia type: pure hypercholesterolemia Qualified Code(s): E78.00 - Pure hypercholesterolemia, unspecified; E78.0 - Pure hypercholesterolemia (5) Psoriasis Priority: Secondary Status: Acute - Discharge Medications Prescriptions: Aspirin Enteric Coated [Aspirin EC] 81 mg PO DAILY #90 tablet. Atorvastatin [Lipitor] 80 mg PO HS #90 tablet Metoprolol XL (24 HR) Succ [Toprol Xl] 25 mg PO DAILY #90 tab.er.24h Ticagrelor [Brilinta] 90 mg PO BID #61 tablet Home Medications: Metoprolol Succinate 25 mg PO DAILY 12/24/16 [History] Nitroglycerin 0.4 mg SL Q5MIN 12/24/16 [History] Atorvastatin [Lipitor] 80 mg PO HS #30 tablet 12/25/16 [Rx] Lisinopril [Zestril] 5 mg PO DAILY #30 tablet 12/25/16 [Rx] Ranitidine HCl [Acid Beverage Steward] 150 mg PO DAILY 08/04/17 [History] Acetaminophen [Tylenol] 650 mg PO Q6HR PRN tablet 08/06/17 [Rx] Aspirin Enteric Coated [Aspirin EC] 81 mg PO DAILY #90 tablet.dr 08/06/17 [Rx] Atorvastatin [Lipitor] 80 mg PO HS #90 tablet 08/06/17 [Rx] Famotidine [Pepcid] 20 mg PO 0630 tablet 08/06/17 [Rx] Lisinopril [Zestril] 5 mg PO DAILY tablet 08/06/17 [Rx] Loratadine [Claritin] 5 mg PO DAILY tablet 08/06/17 [Rx] Metoprolol XL (24 HR) Succ [Toprol Xl] 25 mg PO DAILY #90 tab.er.24h 08/06/17 [ Rx] Nitroglycerin 0.4 mg SL Q5MIN PRN tab.subl 08/06/17 [Rx] Ticagrelor [Brilinta] 90 mg PO BID tablet 08/06/17 [Rx] Ticagrelor [Brilinta] 90 mg PO BID #61 tablet 08/06/17 [Rx] Allergies/Adverse Reactions: 3 Allergy/AdvReac Type Severity Reaction Status Date / Time clavulanic acid Allergy Nausea Verified 06/22/17 10:08 [From Augmentin] prochlorperazine Allergy Hallucinati Verified 06/22/17 10:08 [From Compazine] ng Procedures/tests Complete & Pending: Procedures Performed prior 72 hours Category Date Time Status Left Heart Cath [CL Cardiac Catheterization] [CL] Subway Train Driver 08/04/17 15:02 Completed Routine EV limited echocardiogram Routine Y 08/05/17 15:02 Completed Date of admission: 08/04/17 13:25 Primary care physician: Lorenzo Hill MD Consults: 08/04/17 13:29 Consult to Gi Technician [CONS] Routine Reason for SW Consult: Please assess patient for possible home needs for post -discharge planning. 08/04/17 13:40 Consult to Cardiology [CONS] Routine Comment: Consulting Provider: Cardiology Yesica Reason for Consult: Patient is transfer from [place] [facility] today w/chest pain that began this morning as 15-minute episode of sharp, stabbing pain that radiated to left arm. Pt. took 1 nitro @ home which resolved sx. Episode accompanied by diaphoresis and SOB. Pt. had heart cath in December 2016 w/stent x1. Stress ECG in December was positive for ischemia with [address] depressions in the inferolateral leads. Normal baseline LV systolic function, LVEF 55-60%. There is stress-induced hypokinesis of the mid anteroseptum, mid-apical anterior wall, apical inferior wall, and apex. Heparin drip started in [place] ED and continued here. Aspirin administered. Pt. denies chest pain at this time. Will trend trops x2 and monitor cardiac telemetry. ED consulted Dr. Fernandez today. Call Completed: Yes 08/05/17 07:59 Consult to Cardiac Rehabilitation-Phase1 [CONS] Routine Comment: Reason for Consult: NSTEMI Call Completed: No Discharging clinician: Luis Miguel Brooks Anticipated date of discharge: 08/06/17 - Patient Status Disposition: Home, Self-Care Condition: Good Functional capacity at discharge: independent ambulation Overall status at discharge: patient is progressing back to baseline - Discharge Instructions Instructions: Metoprolol (By mouth), Atorvastatin (By mouth), Ticagrelor (By mouth), Myocardial Infarction (DC) Follow Up With: Lorenzo Hill MD [Primary Care Provider] - (web request sent on 08/05/2017) - Diet and Activity Activity: as per the cardiac rehab Diet: other (cardiac diet) Hospital course: Ms. Ying is a 61 year old female who presented on 08/04/17 with left-sided chest pain, SOB, and diaphoresis. Nitroglycerin resolved the symptoms. She had recently had a CARMENCITA placed in December 2016. Troponin was elevated on this admission. Echo showed EF 55% and mild LVH. Heart catheterization was perfromed and a drug eluting stent was placed in the proximal LAD. The procedure was tolerated well and the patient denies any return of symptoms. Dual anti-platelet therapy with asa and brilinta will continue for at least 1 year, and she will continue statin and beta [place]. The patient was discharged in good condition. - Time Spent with Patient Total time spent providing and/or coordinating discharge services: - Constitutional Vitals: Temp Pulse Resp BP Pulse Ox 98.1 F 79 18 119/73 95 08/06/17 07:43 08/06/17 07:43 08/06/17 07:43 08/06/17 07:43 08/06/17 07:43 General appearance: Present: cooperative, A&O X 3, pleasant, no acute distress, answers questions appropriately - Head Head exam: Present: atraumatic, normal inspection, normocephalic - ENT ENT exam: Present: mucous membranes moist - Neck Neck exam general surgery: Present: trachea midline - Respiratory Respiratory exam: Present: CTAB. Absent: accessory muscle use, respiratory distress - Cardiovascular Cardiovascular exam: Present: RRR, +S1, +S2. Absent: clicks, gallop, rubs, systolic murmur - GI/Abdominal GI/Abdominal exam: Present: normal bowel sounds, soft, no peritoneal signs. Absent: tenderness - Neurological Exam Neurological exam: Present: alert, oriented X3 - Psychiatric Psychiatric exam: Present: normal affect, normal mood - Skin Skin exam: Present: dry, warm <Knapp-Clint Drew - Last Filed: 08/06/17 15:38> Date of Encounter: 08/06/17 Procedures/tests Complete & Pending: Procedures Performed prior 72 hours Category Date Time Status Left Heart Cath [CL Cardiac Catheterization] [CL] Subway Train Driver 08/04/17 15:02 Completed Routine EV limited echocardiogram Routine Y 08/05/17 15:02 Completed Date of admission: 08/04/17 13:25 Primary care physician: Lorenzo Hill MD Consults: 08/04/17 13:29 Consult to Gi Technician [CONS] Routine Reason for SW Consult: Please assess patient for possible home needs for post -discharge planning. 08/04/17 13:40 Consult to Cardiology [CONS] Routine Comment: Consulting Provider: Cardiology Yesica Reason for Consult: Patient is transfer from [place] ED today w/chest pain that began this morning as 15-minute episode of sharp, stabbing pain that radiated to left arm. Pt. took 1 nitro @ home which resolved sx. Episode accompanied by diaphoresis and SOB. Pt. had heart cath in December 2016 w/stent x1. Stress ECG in December was positive for ischemia with [address] depressions in the inferolateral leads. Normal baseline LV systolic function, LVEF 55-60%. There is stress-induced hypokinesis of the mid anteroseptum, mid-apical anterior wall, apical inferior wall, and apex. Heparin drip started in [place] [facility] and continued here. Aspirin administered. Pt. denies chest pain at this time. Will trend trops x2 and monitor cardiac telemetry. ED consulted Dr. Fernandez today. Call Completed: Yes 08/05/17 07:59 Consult to Cardiac Rehabilitation-Phase1 [CONS] Routine Comment: Reason for Consult: NSTEMI Call Completed: No Hospital course: Ms. Ying is a 61 year old female - Time Spent with Patient Total time spent providing and/or coordinating discharge services: - Constitutional Vitals: Temp Pulse Resp BP Pulse Ox 98.1 F 79 18 118/66 98 08/06/17 11:38 08/06/17 11:38 08/06/17 11:38 08/06/17 11:38 08/06/17 11:38 - Attending Attestation I examined this patient and my medical decision-making was reviewed with the Resident Physician. I agree with the documented findings, disposition and treatment plan as described except to the extent set forth below.
[2017-08-06 11:44] VITALS: BP 118/66
[2017-08-07] MEDS ORDERED: *HR* Ticagrelor 90 MG TABLET PO SCH (09:00)
== END 2017-08-06 13:53 | disposition home or self-care (01) | DRG 247 ==
LOC: 2ANU → SUATTDRO 10:27
PROVIDERS: ADMIT Internal Medicine; ATTEND Internal Medicine